=== PATIENT | female | born 1940 | race Caucasian/White ===

== ENCOUNTER 2017-05-16 08:45 | Day surgery (SDC) | payer OTHER ==
[2017-05-16 11:40] VITALS: TEMP 97.1
[2017-05-16] MEDS ORDERED: VERSED ONE (12:43)
[2017-05-16] MEDS ORDERED: DIPRIVAN 20 ML VIAL IVP ONE (12:43)
[2017-05-16 13:20] VITALS: BP 130/61
--- NOTE | 2017-05-17 13:48 | OP ---
PROCEDURE: COLONOSCOPY TO THE CECUM. ENDOSCOPIST: Roberth POLANCO M.D. INDICATION: DIARRHEA, RECENT C. DIFF INFECTION. DATE OF LAST COLONOSCOPY UNKNOWN, NO RECORD. INSTRUMENT: Automile-190. MEDICATION: PER ANESTHESIA. PROCEDURE: The patient was positioned for colonoscopy. The digital rectal exam was negative. The colonoscope was inserted through the anus and advanced to the cecum. The cecum was identified using the ileocecal valve and the appendiceal orifice as landmarks. The scope was slowly withdrawn through an adequately prepped colon. Careful inspection is made of each colonic segment. The scope is withdrawn in a circumferential fashion with care taken to inspect the proximal side of the ileocecal valve, haustral folds, flexures and rectal valves. Diverticula were seen in the left colon. No other evidence for polyp or mass. The patient tolerated the procedure well without immediate complication. Withdrawal time 7 minutes, 26 seconds. PLAN: 1. Repeat as needed. cc: Dr. Reinaldo DIMAS
== END 2017-05-16 13:55 | disposition home or self-care (01) ==
LOC: SURG 08:45
PROVIDERS: ATTEND Internal Medicine Gastroenterology
DX: R19.7 Diarrhea, unspecified (principal); K57.30 Diverticulosis of large intestine without perforation or abscess without bleeding; Z86.19 Personal history of other infectious and parasitic diseases

== ENCOUNTER 2022-03-02 20:06 | Inpatient (IN) ==
--- NOTE | 2022-03-02 20:15 | ED.PDOC ---
General ED Provider: Dr. PRANAV GAMEZ Chief Complaint: Altered Mental Status Stated Complaint: Elderly female found wandering outside confused, house without AC, hx dementia Time Seen by Provider: 03/02/22 20:15 Mode of Arrival: Ambulance Information Source: Patient and EMT Exam Limitations: Clinical condition and Dementia Primary Care Provider: DARYL ESPINOZA Nursing and Triage Documentation Reviewed and Agree: Yes Does patient meet sepsis criteria?: No System Inflammatory Response Syndrome: Not Applicable Sepsis Protocol: For patient's 13 years and over: Temp is 96.8 and below OR 101 and greater Pulse >90 BPM Resp >20/minute Acutely Altered Mental Status Are patient's symptoms suggestive of a new infection, such as: -Pneumonia -Skin, Soft Tissue -Endocarditis -UTI -Bone, Joint Infection -Implantable Device -Acute Abdominal Infection -Wound Infection -Meningitis -Blood Stream Catheter Infection -Unknown Neurological Complaint Exam Weakness Complaint/Exam Last Known Well: lives alone Onset: Gradual Duration: 1 d Symptoms Are: Still present Timing: Constant Initial Severity: Moderate Current Severity: Moderate Character: Reports Weak Aggravating: Reports Exertion Alleviating: Reports Rest Associated Signs and Symptoms: Denies Nausea, Vomiting, Diaphoresis, Tinnitus, Chest pain, Short of air, Palpitations, Unsteady gait, GI blood loss, Visual changes, Decreased oral intake, Change in medication, Change in diet, OTC meds or Loss of balance Cardiac Risk Factors: Reports Hypertension CVA Risk Factors: Reports Hypertension JVD Present: No Carotid Bruit Present: No Glascow Coma Scale (see protocol): 14 Nystagmus Present: No Gag Reflex Present: Yes Meningeal Signs Positive: No Focal Sensory Loss: Present None Gait: Normal Review of Systems Review Of Systems Constitutional: Reports Malaise and Weakness Eyes: Reports No symptoms Ears, Nose, Mouth, Throat: Reports No symptoms Respiratory: Reports No symptoms Cardiac: Reports No symptoms GI: Reports No symptoms : Reports No symptoms Musculoskeletal: Reports No symptoms Skin: Reports No symptoms Neurological: Reports Cognitive dysfunction Endocrine: Reports No symptoms Hematologic/Lymphatic: Reports No symptoms All Other Systems: Reviewed and Negative [facility] Medical History Diabetes mellitus Hypertension Surgical History Status post hernia repair Female Reproductive History Menstrual Hx Hysterectomy: No Hx Tubal Ligation: No Physical Exam Physical Exam Appearance: Reports Ill-appearing Ill-appearing: Mild Pain Distress: Mild Eyes: Reports ROMULO ENT: Reports Oropharynx normal Neck: Supple Respiratory: Reports Airway patent and Breath sounds clear Cardiovascular: Reports RRR and Pulses normal GI/: Reports Soft and Nontender Musculoskeletal: Reports Normal strength and ROM intact Skin: Reports Warm and Dry Neurological: Reports Sensation intact, Motor intact and Alert Psychiatric: Reports Affect appropriate and Mood appropriate Interpretation EKG Interpretation Time of EKG #1: 20:41 Rate: Normal Rhythm: Sinus Ectopy: None Chauncey: NL ST Segment: Normal Critical Care Note Critical Care Note Total Critical Care Time (mins): 0 Course Course Hematology/Chemistry: 03/02/22 20:50 03/02/22 20:50 Orders, Labs, Meds: Lab Review 03/02/22 03/02/22 03/02/22 20:50 20:50 21:07 WBC 7.73 RBC 4.65 Hgb 14.5 Hct 43.3 MCV 93.1 MCH 31.2 H MCHC 33.5 RDW Coeff of Bety 13.8 Plt Count 196 Immature Gran % (Auto) 0.1 Neut % (Auto) 60.0 Lymph % (Auto) 29.0 [place] % (Auto) 7.2 Eos % (Auto) 3.1 Baso % (Auto) 0.6 Neut # (Auto) 4.6 Lymph # (Auto) 2.2 [place] # (Auto) 0.6 Eos # (Auto) 0.2 Baso # (Auto) 0.1 Immature Gran # (Auto) 0.0 Sodium 144.0 Potassium 3.94 Chloride 112.7 H Carbon Dioxide 22.0 Anion Gap 13.24 BUN 28.5 H Creatinine 0.95 Estimated GFR (MDRD) 56.00 BUN/Creatinine Ratio 30.00 Glucose 139.8 H Calcium 9.63 Magnesium 2.19 Total Bilirubin 0.50 AST 30.1 ALT 28.1 Alkaline Phosphatase 68.6 Troponin I < 0.012 Total Protein 7.01 Albumin 3.98 Globulin 3.03 Albumin/Globulin Ratio 1.31 TSH 1.760 SARS CoV-2 RNA Rapid JESI Negative Orders Category Date Time Status EKG-(ED ONLY) Stat CARDIO 03/02/22 20:34 Completed CBC W/ AUTO DIFF Stat LAB 03/02/22 20:50 Completed COMPREHENSIVE METABOLIC PANEL Stat LAB 07/19/22 20:50 Completed MAGNESIUM Stat LAB 03/02/22 20:50 Completed SARS COV-2 RNA RAPID JESI Stat LAB 03/02/22 21:07 Completed THYROID STIMULATING HORMONE Stat LAB 03/02/22 20:50 Completed TROPONIN I Stat LAB 03/02/22 20:50 Completed URINALYSIS C & S IF INDICATED Stat LAB 03/02/22 22:30 Completed CHEST, 1V AP ONLY Stat RADS 03/02/22 20:34 Completed Medications Generic Name Dose Route Start Last Admin Trade Name Freq PRN Reason Stop Dose Admin Buspirone HCl 7.5 mg 03/03/22 11:00 03/03/22 11:03 Buspirone Hcl 10 Mg Tablet PO 7.5 mg BID RELL Administration CEFTRIAXONE/D5W 1 GM PREMIX 1 gm in 50 mls @ 75 mls/hr 03/03/22 09:00 03/03/22 09:48 Rocephin 1 Gm/50 Ml D5w IV 03/06/22 08:59 75 mls/hr DAILY RELL Administration Sodium Chloride 1,000 mls @ 42 mls/hr 03/03/22 00:11 03/03/22 00:18 Sodium Chloride IV 42 mls/hr Q24H RELL Administration Insulin Human Regular 0 unit 03/03/22 00:23 03/03/22 11:15 Insulin Regular, Human 100 Unit/Ml (3ml) Vial SUBCUT 3 unit PRN PRN Administration Hyperglycemia Protocol Linagliptin 5 mg 03/03/22 11:00 03/03/22 11:03 Linagliptin 5 Mg Tablet PO 5 mg DAILY RELL Administration Losartan Potassium 50 mg 03/03/22 11:00 03/03/22 11:03 Losartan Potassium 25 Mg Tablet PO 50 mg DAILY RELL Administration Quetiapine Fumarate 25 mg 03/03/22 21:00 Quetiapine Fumarate 25 Mg Tablet PO BEDTIME RELL Discontinued Medications Generic Name Dose Route Start Last Admin Trade Name Freq PRN Reason Stop Dose Admin Sodium Chloride 1,000 mls @ 75 mls/hr 03/02/22 23:30 03/03/22 00:17 Sodium Chloride IV Not Given Q24H RELL Vital Signs: Temp Pulse Resp BP Pulse Ox 03/02/22 20:07 97.0 F L 74 18 133/78 97 Discharge Plan Discharge Patient Disposition: PLACED OBSERVATION Did you review [place] [facility]?: Not Applicable ED Provider: PRANAV GAMEZ Condition: Fair Physician Progress Note: []Dementia, heat exhaustion, UTI, ;place in obs, do not see need for head CT
[2022-03-02 20:57] LABS: BASOPHILS # (AUTO) 0.1 K/uL (0-0.2); BASOPHILS % (AUTO) 0.6 % (0.0-3.0); EOSINOPHILS # (AUTO) 0.2 K/ul (0.0-0.7); EOSINOPHILS % (AUTO) 3.1 % (0.0-7.0); HEMATOCRIT 43.3 % (37.0-47.0); HEMOGLOBIN 14.5 g/dl (12.0-16.0); IMMATURE GRANULOCYTE % (AUTO) 0.1 % (0.0-5.0); LYMPHOCYTES # (AUTO) 2.2 K/uL (0.60-3.4); MEAN CORPUSCULAR HEMOGLOBIN 31.2 pg (27.0-31.0); MEAN CORPUSCULAR HGB CONC 33.5 (31.8-35.4); MEAN CORPUSCULAR VOLUME 93.1 fl (81.0-99.0); MONOCYTES # (AUTO) 0.6 K/uL (0.4-2.0); MONOCYTES % (AUTO) 7.2 (0-10); NEUTROPHILS # (AUTO) 4.6 K/ul (2.0-6.9); PLATELET COUNT 196 10^3/uL (140-440); RDW COEFFICIENT OF VARIATION 13.8 % (11.6-14.8); RED BLOOD COUNT 4.65 10^6/ul (4.20-5.40); WHITE BLOOD COUNT 7.73 K/ul (4.6-10.2)
--- NOTE | 2022-03-02 21:14 | DI ---
EXAM: CHEST RADIOGRAPH (1 VIEW) TECHNIQUE: Frontal Chest Radiograph. HISTORY: Shortness of breath. COMPARISON: None. FINDINGS: Lines, Tubes, Devices: None Lungs and Pleura: No focal consolidation. No pleural effusion. No pneumothorax. No pulmonary edema . Cardiomediastinum: Normal cardiomediastinal silhouette. Minimal aortic calcifications. Bones/Soft Tissues: Scoliosis with degenerative changes of the spine. No soft tissue abnormality. Upper Abdomen: Within normal limits. IMPRESSION: No acute radiographic abnormality.
[2022-03-02 21:20] LABS: ALANINE AMINOTRANSFERASE 28.1 U/L (0-35); ALBUMIN 3.98 g/dL (3.5-5.0); ALKALINE PHOSPHATASE 68.6 U/L (53-141); ASPARTATE AMINO TRANSFERASE 30.1 U/L (14-36); BLOOD UREA NITROGEN 28.5 mg/dL (7-17); CALCIUM 9.63 mg/dL (8.4-10.2); CHLORIDE 112.7 mmol/L (98-107); CREATININE 0.95 mg/dL (0.60-1.30); GLUCOSE 139.8 mg/dL (74-106); MAGNESIUM 2.19 mg/dL (1.6-2.3); POTASSIUM 3.94 mmol/L (3.5-5.1); TOTAL PROTEIN 7.01 g/dL (6.3-8.2)
[2022-03-02 21:39] LABS: TROPONIN I < 0.012 ng/ml (0.0000-0.120)
[2022-03-02 22:34] LABS: BILIRUBIN,URINE Negative (NEGATIVE); CLARITY,URINE Slightly (CLEAR); COLOR,URINE Yellow (YELLOW); GLUCOSE, URINE (UA) Negative (NEGATIVE); KETONES,URINE Negative (NEGATIVE); LEUKOCYTE ESTERASE ,URINE 1+ (NEGATIVE); NITRITE,URINE Positive (NEGATIVE); PH,URINE 5.5 (5-9); PROTEIN,URINE Negative (NEGATIVE); URINE, BLOOD Negative (NEGATIVE); UROBILINOGEN,URINE 0.2 (0.2)
[2022-03-02 22:40] LABS: BACTERIA,URINE 3+ (NOT PRESENT); MUCUS,URINE 2+ (NOT PRESENT); SQUAMOUS EPITHELIAL CELL,UR 0-2 (0-5)
[2022-03-02 23:00] VITALS: BMI 24.5
[2022-03-02] MEDS: SODIUM CHLORIDE 1,000 ML IV SCH (23:32)
[2022-03-03] MEDS: SODIUM CHLORIDE 1,000 ML IV SCH ×3 (00:09→00:18)
[2022-03-03] MEDS: ROCEPHIN 1 GM/50 ML D5W 1 GM/50 ML BAG IV SCH (09:48)
[2022-03-03] MEDS ORDERED: BUSPIRONE 7.5 MG PO SCH (10:45)
[2022-03-03] MEDS: TRADJENTA PO SCH (11:03)
[2022-03-03] MEDS: BUSPAR PO SCH ×2 (11:03→23:14)
[2022-03-03] MEDS: COZAAR PO SCH (11:03)
[2022-03-03] MEDS: HUMULIN R SUBCUT PRN ×3 (11:15→20:17)
[2022-03-03] MEDS ORDERED: HALDOL IM ONE (12:58)
[2022-03-03] MEDS ORDERED: ATIVAN IM ONE (18:15)
[2022-03-03] MEDS ORDERED: GEODON IM ONE (18:21)
--- NOTE | 2022-03-03 20:35 | PCM.PROG ---
Date Seen by Provider: 03/03/22 Time Seen by Provider: 11:00 Subjective: Patient states she has mild suprapubic pain. She has been confused and agitated off an on this morning. She has been confused about her location and sometimes says things that make no sense. Objective: Vitals: T=97.6 F, P=60, R=18, MS=476/60, NMR5=350 HEENT: [ mucus membranes moist ] Neck: [Supple ] Lungs: [Clinically clear bilaterally ] CVS: [regular s1 and s 2 only ] Abdomen: [soft mild tenderness on the suprapubic area] Extremities: [ no edema ] Neurological: [Confused at times able to redirect but at time not.] Skin: [No rash] Lab/Tests/Diagnostic Imaging: Abnormal Lab Results 03/02/22 03/02/22 03/02/22 20:50 20:50 21:07 WBC 7.73 RBC 4.65 Hgb 14.5 Hct 43.3 MCV 93.1 MCH 31.2 H MCHC 33.5 RDW Coeff of Bety 13.8 Plt Count 196 Immature Gran % (Auto) 0.1 Neut % (Auto) 60.0 Lymph % (Auto) 29.0 [place] % (Auto) 7.2 Eos % (Auto) 3.1 Baso % (Auto) 0.6 Neut # (Auto) 4.6 Lymph # (Auto) 2.2 [place] # (Auto) 0.6 Eos # (Auto) 0.2 Baso # (Auto) 0.1 Immature Gran # (Auto) 0.0 Sodium 144.0 Potassium 3.94 Chloride 112.7 H Carbon Dioxide 22.0 Anion Gap 13.24 BUN 28.5 H Creatinine 0.95 Estimated GFR (MDRD) 56.00 BUN/Creatinine Ratio 30.00 Glucose 139.8 H Calcium 9.63 Magnesium 2.19 Total Bilirubin 0.50 AST 30.1 ALT 28.1 Alkaline Phosphatase 68.6 Troponin I < 0.012 Total Protein 7.01 Albumin 3.98 Globulin 3.03 Albumin/Globulin Ratio 1.31 TSH 1.760 SARS CoV-2 RNA Rapid JESI Negative 03/02/22 22:30 WBC RBC Hgb Hct MCV MCH MCHC RDW Coeff of Bety Plt Count Immature Gran % (Auto) Neut % (Auto) Lymph % (Auto) [place] % (Auto) Eos % (Auto) Baso % (Auto) Neut # (Auto) Lymph # (Auto) [place] # (Auto) Eos # (Auto) Baso # (Auto) Immature Gran # (Auto) Sodium Potassium Chloride Carbon Dioxide Anion Gap BUN Creatinine Estimated GFR (MDRD) BUN/Creatinine Ratio Glucose Calcium Magnesium Total Bilirubin AST ALT Alkaline Phosphatase Troponin I Total Protein Albumin Globulin Albumin/Globulin Ratio TSH Urine Color Yellow Urine Clarity Slightly Urine pH 5.5 Ur Specific [place] >=1.030 Urine Protein Negative Urine Glucose (UA) Negative Urine Ketones Negative Urine Blood Negative Urine Nitrite Positive H Urine Bilirubin Negative Urine Urobilinogen 0.2 Ur Leukocyte Esterase 1+ H Urine Microscopic WBC 5-10 Ur Squamous Epith Cells 0-2 Urine Bacteria 3+ Urine Mucus 2+ SARS CoV-2 RNA Rapid JESI ] (1) Urinary tract infection in elderly patient: Status: Acute Code(s): N39.0 - Urinary tract infection, site not specified SNOMED Code(s): 51060473 Assessment: with mental status changes. Currently On Rocephin q 24 HOURS (2) Delirium: Status: Acute Code(s): R41.0 - Disorientation, unspecified SNOMED Code(s): 8441418 Assessment: Likely due to Urinary Tract infection Attempted to redirect but ended up needed Haldol which helped. Will order Ativan and GEODON if needed. (3) Hypertension: Status: Acute Code(s): I10 - Essential (primary) hypertension SNOMED Code(s): 52206081 Assessment: Blood pressure controlled. (4) Diabetes mellitus: Status: Acute Code(s): E11.9 - Type 2 diabetes mellitus without complications SNOMED Code(s): 49722187 Assessment: Blood glucose controlled on Tradjenta and Diabetic diet Plan: Continue current antibiotics Follow LABS in the AM Will need Rehab/ long term care pharmacist placement upon discharge. Dr Phillips has agreed to Admit her to local [place].
[2022-03-03] MEDS: SEROQUEL PO SCH (23:14)
[2022-03-04 05:26] LABS: BASOPHILS # (AUTO) 0.1 K/uL (0-0.2); BASOPHILS % (AUTO) 0.6 % (0.0-3.0); EOSINOPHILS # (AUTO) 0.3 K/ul (0.0-0.7); EOSINOPHILS % (AUTO) 3.6 % (0.0-7.0); HEMATOCRIT 45.2 % (37.0-47.0); HEMOGLOBIN 14.7 g/dl (12.0-16.0); IMMATURE GRANULOCYTE % (AUTO) 0.3 % (0.0-5.0); LYMPHOCYTES # (AUTO) 2.2 K/uL (0.60-3.4); LYMPHOCYTES % (AUTO) 28.6 (10.0-50.0); MEAN CORPUSCULAR HEMOGLOBIN 30.8 pg (27.0-31.0); MEAN CORPUSCULAR HGB CONC 32.5 (31.8-35.4); MEAN CORPUSCULAR VOLUME 94.8 fl (81.0-99.0); MONOCYTES # (AUTO) 0.6 K/uL (0.4-2.0); MONOCYTES % (AUTO) 7.3 (0-10); NEUTROPHILS # (AUTO) 4.7 K/ul (2.0-6.9); NEUTROPHILS % (AUTO) 59.6 % (42.2-75.2); PLATELET COUNT 194 10^3/uL (140-440); RDW COEFFICIENT OF VARIATION 13.9 % (11.6-14.8); RED BLOOD COUNT 4.77 10^6/ul (4.20-5.40); WHITE BLOOD COUNT 7.81 K/ul (4.6-10.2)
[2022-03-04 05:47] LABS: BLOOD UREA NITROGEN 25.1 mg/dL (7-17); CALCIUM 8.97 mg/dL (8.4-10.2); CHLORIDE 111.6 mmol/L (98-107); CREATININE 0.79 mg/dL (0.60-1.30); GLUCOSE 117.6 mg/dL (74-106); POTASSIUM 4.23 mmol/L (3.5-5.1); SODIUM 139.8 mmol/L (134.5-145)
[2022-03-04] MEDS: SODIUM CHLORIDE 1,000 ML IV SCH (06:20)
[2022-03-04] MEDS: COZAAR PO SCH (08:04)
[2022-03-04] MEDS: TRADJENTA PO SCH (08:04)
[2022-03-04] MEDS: BUSPAR PO SCH ×2 (08:05→20:09)
[2022-03-04] MEDS: ROCEPHIN 1 GM/50 ML D5W 1 GM/50 ML BAG IV SCH (09:09)
[2022-03-04] MEDS: HUMULIN R SUBCUT PRN ×2 (11:59→20:31)
[2022-03-04] MEDS: ATIVAN PO PRN ×2 (13:06→20:10)
--- NOTE | 2022-03-04 14:32 | PCM.PROG ---
Date Seen by Provider: 03/04/22 Time Seen by Provider: 14:28 Subjective: hx of dementia, pt w/o complaint of pain, ambulatory, disorganized thinking, speech fluent Objective: Vitals: T=97.7 F, P=56, R=20, BB=621/80, SPO2=99 HEENT: []conjunctiva clear Neck: []supple Lungs: [] clear CVS: []RRR Abdomen: []soft and nontender Extremities: []kedar Neurological: []alert, oriented x 1 Skin: []warm and dry Lab/Tests/Diagnostic Imaging: [] admission cxr nap and bun 28 and covid neg (1) Urinary tract infection in elderly patient: Status: Acute Code(s): N39.0 - Urinary tract infection, site not specified SNOMED Code(s): 23859967 (2) Delirium: Status: Acute Code(s): R41.0 - Disorientation, unspecified SNOMED Code(s): 3344271 (3) Hypertension: Status: Acute Code(s): I10 - Essential (primary) hypertension SNOMED Code(s): 51850818 (4) Diabetes mellitus: Status: Acute Code(s): E11.9 - Type 2 diabetes mellitus without complications SNOMED Code(s): 58632662 Plan: awaiting head ct result, given ativan for agitation, plan to discharge to [place] for Dr Phillips tomorrow, continue rocephin for uti care to Dr Gregory at 19:00
--- NOTE | 2022-03-04 15:00 | CT ---
EXAMINATION: HEAD CT WITHOUT CONTRAST HISTORY: Altered mental status. TECHNIQUE: Noncontrast CT of the brain was performed with images acquired from skull base to vertex. Contrast Dose: None CT Dose Reduction Techniques Performed: Yes COMPARISON: None. FINDINGS: Topogram demonstrates no significant abnormality. Intraparenchymal hemorrhage: None. Parenchyma: Normal estrada-white differentiation. No mass effect or midline shift. Extra-axial spaces and Basal cisterns: Normal. Chronic: Mild periventricular white matter hypodensities which are nonspecific, however likely due to chronic microvascular ischemia. Mild parenchymal atrophy and atrophy of the hippocampi, left greate r than right. Atherosclerotic calcification of the bilateral carotid siphons. Ventricles: Normal size and morphology for age. Paranasal sinuses and mastoid air cells: Paranasal sinuses are clear. Mastoid air cells are clear. Orbits: Normal. Sella/Skull Base: Partially empty sella. Other: Scalp and visualized soft tissues are normal. Calvarium is normal. IMPRESSION: No acute intracranial abnormality. All CT scans are performed using dose optimization techniques as appropriate to the performed exam an d include at least one of the following: Automated exposure control, adjustment of the mA and/or kV according t o size, and the use of iterative reconstruction technique.
[2022-03-04] MEDS: SEROQUEL PO SCH (20:09)
[2022-03-05] MEDS: SODIUM CHLORIDE 1,000 ML IV SCH (02:39)
[2022-03-05] MEDS ORDERED: ATIVAN IM ONE (05:13)
[2022-03-05 05:44] LABS: BASOPHILS # (AUTO) 0.1 K/uL (0-0.2); BASOPHILS % (AUTO) 0.6 % (0.0-3.0); EOSINOPHILS # (AUTO) 0.3 K/ul (0.0-0.7); EOSINOPHILS % (AUTO) 3.4 % (0.0-7.0); HEMATOCRIT 48.5 % (37.0-47.0); IMMATURE GRANULOCYTE % (AUTO) 0.3 % (0.0-5.0); LYMPHOCYTES # (AUTO) 3.4 K/uL (0.60-3.4); MEAN CORPUSCULAR HEMOGLOBIN 31.1 pg (27.0-31.0); MEAN CORPUSCULAR VOLUME 94.4 fl (81.0-99.0); MONOCYTES # (AUTO) 0.6 K/uL (0.4-2.0); MONOCYTES % (AUTO) 6.8 (0-10); NEUTROPHILS # (AUTO) 4.9 K/ul (2.0-6.9); NEUTROPHILS % (AUTO) 52.9 % (42.2-75.2); PLATELET COUNT 225 10^3/uL (140-440); RDW COEFFICIENT OF VARIATION 14.2 % (11.6-14.8); RED BLOOD COUNT 5.14 10^6/ul (4.20-5.40); WHITE BLOOD COUNT 9.31 K/ul (4.6-10.2)
[2022-03-05 06:15] LABS: BLOOD UREA NITROGEN 22.5 mg/dL (7-17); CALCIUM 9.47 mg/dL (8.4-10.2); CARBON DIOXIDE 21.5 mmol/L (22-30.0); CHLORIDE 109.5 mmol/L (98-107); CREATININE 0.89 mg/dL (0.60-1.30); GLUCOSE 145.1 mg/dL (74-106); POTASSIUM 4.58 mmol/L (3.5-5.1)
[2022-03-05] MEDS: ROCEPHIN 1 GM/50 ML D5W 1 GM/50 ML BAG IV SCH ×2 (09:05→09:19)
[2022-03-05] MEDS: COZAAR PO SCH (09:14)
[2022-03-05] MEDS: BUSPAR PO SCH (09:14)
[2022-03-05] MEDS: TRADJENTA PO SCH (09:15)
[2022-03-05] MEDS: HUMULIN R SUBCUT PRN (12:07)
--- NOTE | 2022-03-05 14:02 | PCM.DC ---
Final Diagnosis: Dementia. Generalized debility and weakness. Type 2 Diabetes Hypertension UTI - resolved. Physical Exam Appearance: Well-appearing Ill-appearing: None Pain Distress: None Eyes: ROMULO ENT: Oropharynx normal Neck: Supple Respiratory: Airway patent and Breath sounds clear Cardiovascular: RRR and Pulses normal GI/: Soft and Nontender Musculoskeletal: Normal strength and ROM intact Skin: Warm and Dry Neurological: Sensation intact, Motor intact, Alert and Other (Dementia at baseline. ) Psychiatric: Affect appropriate and Mood appropriate (1) Urinary tract infection in elderly patient: Status: Acute Code(s): N39.0 - Urinary tract infection, site not specified SNOMED Code(s): 90331933 (2) Delirium: Status: Acute Code(s): R41.0 - Disorientation, unspecified SNOMED Code(s): 9933109 (3) Hypertension: Status: Acute Code(s): I10 - Essential (primary) hypertension SNOMED Code(s): 20142255 (4) Diabetes mellitus: Status: Acute Code(s): E11.9 - Type 2 diabetes mellitus without complications SNOMED Code(s): 77923481 Reason for Hospitalization: Admitted with confusion related to dementia, UTI, and heat stress. Diabetes and hypertension not controlled due to noncompliance. Prognosis/Condition at Discharge: Stable Medications at Discharge: Ambulatory Orders Medication Instructions Recorded linagliptin 5 mg tablet (Tradjenta) 5 mg PO DAILY 04/30/16 acyclovir 5 % topical cream 1 applic topical BID PRN sore to 03/03/22 (Zovirax) lip [id number]-[id number] 250 1 tab PO Q4-6H PRN Mild to 03/03/22 mg-250 mg-65 mg tablet (Excedrin moderate pain Migraine) buspirone 7.5 mg tablet 7.5 mg PO BID 03/03/22 losartan 50 mg tablet 50 mg PO DAILY 03/03/22 mupirocin 2 % topical ointment 1 applic topical TID PRN Skin 03/03/22 irritation quetiapine 25 mg tablet 25 mg PO BEDTIME 03/03/22 triamcinolone acetonide 0.1 % 1 applic dental BID 03/03/22 dental paste Lab/Diagnostics: Laboratory Tests 03/02/22 03/02/22 03/02/22 20:50 20:50 21:07 WBC 7.73 RBC 4.65 Hgb 14.5 Hct 43.3 MCV 93.1 MCH 31.2 H MCHC 33.5 RDW Coeff of Bety 13.8 Plt Count 196 Immature Gran % (Auto) 0.1 Neut % (Auto) 60.0 Lymph % (Auto) 29.0 [place] % (Auto) 7.2 Eos % (Auto) 3.1 Baso % (Auto) 0.6 Neut # (Auto) 4.6 Lymph # (Auto) 2.2 [place] # (Auto) 0.6 Eos # (Auto) 0.2 Baso # (Auto) 0.1 Immature Gran # (Auto) 0.0 Sodium 144.0 Potassium 3.94 Chloride 112.7 H Carbon Dioxide 22.0 Anion Gap 13.24 BUN 28.5 H Creatinine 0.95 Estimated GFR (MDRD) 56.00 BUN/Creatinine Ratio 30.00 Glucose 139.8 H Calcium 9.63 Magnesium 2.19 Total Bilirubin 0.50 AST 30.1 ALT 28.1 Alkaline Phosphatase 68.6 Troponin I < 0.012 Total Protein 7.01 Albumin 3.98 Globulin 3.03 Albumin/Globulin Ratio 1.31 TSH 1.760 Urine Color Urine Clarity Urine pH Ur Specific Interior Urine Protein Urine Glucose (UA) Urine Ketones Urine Blood Urine Nitrite Urine Bilirubin Urine Urobilinogen Ur Leukocyte Esterase Urine Microscopic WBC Ur Squamous Epith Cells Urine Bacteria Urine Mucus SARS CoV-2 RNA Rapid JESI Negative 03/02/22 03/04/22 03/04/22 22:30 05:21 05:21 WBC 7.81 RBC 4.77 Hgb 14.7 Hct 45.2 MCV 94.8 MCH 30.8 MCHC 32.5 RDW Coeff of Bety 13.9 Plt Count 194 Immature Gran % (Auto) 0.3 Neut % (Auto) 59.6 Lymph % (Auto) 28.6 [place] % (Auto) 7.3 Eos % (Auto) 3.6 Baso % (Auto) 0.6 Neut # (Auto) 4.7 Lymph # (Auto) 2.2 [place] # (Auto) 0.6 Eos # (Auto) 0.3 Baso # (Auto) 0.1 Immature Gran # (Auto) 0.0 Sodium 139.8 Potassium 4.23 Chloride 111.6 H Carbon Dioxide 24.0 Anion Gap 8.43 BUN 25.1 H Creatinine 0.79 Estimated GFR (MDRD) 69.00 BUN/Creatinine Ratio 31.77 Glucose 117.6 H Calcium 8.97 Magnesium Total Bilirubin AST ALT Alkaline Phosphatase Troponin I Total Protein Albumin Globulin Albumin/Globulin Ratio TSH Urine Color Yellow Urine Clarity Slightly Urine pH 5.5 Ur Specific [place] >=1.030 Urine Protein Negative Urine Glucose (UA) Negative Urine Ketones Negative Urine Blood Negative Urine Nitrite Positive H Urine Bilirubin Negative Urine Urobilinogen 0.2 Ur Leukocyte Esterase 1+ H Urine Microscopic WBC 5-10 Ur Squamous Epith Cells 0-2 Urine Bacteria 3+ Urine Mucus 2+ SARS CoV-2 RNA Rapid JESI 03/05/22 03/05/22 05:28 05:28 WBC 9.31 RBC 5.14 Hgb 16.0 Hct 48.5 H MCV 94.4 MCH 31.1 H MCHC 33.0 RDW Coeff of Bety 14.2 Plt Count 225 Immature Gran % (Auto) 0.3 Neut % (Auto) 52.9 Lymph % (Auto) 36.0 [place] % (Auto) 6.8 Eos % (Auto) 3.4 Baso % (Auto) 0.6 Neut # (Auto) 4.9 Lymph # (Auto) 3.4 [place] # (Auto) 0.6 Eos # (Auto) 0.3 Baso # (Auto) 0.1 Immature Gran # (Auto) 0.0 Sodium 140.0 Potassium 4.58 Chloride 109.5 H Carbon Dioxide 21.5 L Anion Gap 13.58 BUN 22.5 H Creatinine 0.89 Estimated GFR (MDRD) 60.00 BUN/Creatinine Ratio 25.28 Glucose 145.1 H Calcium 9.47 Magnesium Total Bilirubin AST ALT Alkaline Phosphatase Troponin I Total Protein Albumin Globulin Albumin/Globulin Ratio TSH Urine Color Urine Clarity Urine pH Ur Specific Interior Urine Protein Urine Glucose (UA) Urine Ketones Urine Blood Urine Nitrite Urine Bilirubin Urine Urobilinogen Ur Leukocyte Esterase Urine Microscopic WBC Ur Squamous Epith Cells Urine Bacteria Urine Mucus SARS CoV-2 RNA Rapid JESI IMPRESSION: Head CT without contrast No acute intracranial abnormality. All CT scans are performed using dose optimization techniques as appropriate to the performed exam and include at least one of the following: Automated exposure control, adjustment of the mA and/or kV according to size, and the use of iterative reconstruction technique. IMPRESSION: Chest X-ray No acute radiographic abnormality. Education Provided to Patient and Family: per nursing staff Follow-ups: Dr. Phillips or his designee Discharge Disposition: Assisted Care Facility Hospital Course: 82 y/o female admitted with dementia flare due to heat stress and UTI. Improved with tx. UTI not sig, culture was mixed rafaela, no further tx. Blood sugar and blood pressure controlled. Due to the advancing dementia, along with generalized weakness and debility, patient requires fpc placement. Plan: Transfer to [facility]. DNI status. This d/c summary performed after a [id number] exam and documentation taking 40 minutes of time.
[2022-03-05 14:07] VITALS: BP 117/70; TEMP 98
[2022-03-05] MEDS: ATIVAN PO PRN (14:41)
== END 2022-03-05 16:28 | DRG 690 ==
LOC: ED 20:06 → MEDSURG A 20:06 → OBSVTOIN 22:13 → MEDSURG A 22:46
PROVIDERS: ADMIT Emergency Medicine; ATTEND Emergency Medicine
DX: T67.5XXA Heat exhaustion, unspecified, initial encounter; E11.9 Type 2 diabetes mellitus without complications; M62.81 Muscle weakness (generalized); Z51.81 Encounter for therapeutic drug level monitoring; Z79.899 Other long term (current) drug therapy; N39.0 Urinary tract infection, site not specified; I10 Essential (primary) hypertension; Z20.822 Contact with and (suspected) exposure to COVID-19; Z79.82 Long term (current) use of aspirin; R41.82 Altered mental status, unspecified